=== PATIENT | male | born 1945 | race Caucasian/White ===

== ENCOUNTER 2016-08-26 07:38 | Day surgery (SDC) | payer OTHER ==
[~2016-08-26] VITALS: Ht 170.2 cm; Wt 68.3 kg
[~2016-08-26 07:38] MED LIST: DEXA4TAB PO; DICY20TA59 PO; LENA2.5C PO; METF500T4 PO; PANT40TA3 PO; [UNRECOGNIZED DRUG - CODE] SUBCUTANE
[2016-08-26] MEDS ORDERED: PROPOFOL 20 ML ONE ×3 (08:01→08:24)
[2016-08-26 08:14] VITALS: Ht 170.2 cm; Wt 68.3 kg
[2016-08-26] MEDS ORDERED: EPHEDrine SULFATE 50 MG/5 ML SYG ONE (08:23)
[2016-08-26] MEDS ORDERED: MIDAZOLAM 1 MG/ML 2 ML INJ ONE (08:24)
[2016-08-26] MEDS ORDERED: FENTAnyl 50 MCG/ML VIAL ONE (08:24)
[2016-08-26 08:33] VITALS: BP 113/70; PULSE 76; RESP 14
[2016-08-26] MEDS ORDERED: CHOL400D8 PO (09:11)
[2016-08-26] MEDS ORDERED: POLY17PO6 PO (09:11)
[2016-08-26] MEDS ORDERED: VIT1TABL85 PO (09:11)
[2016-08-26] MEDS ORDERED: ACYC200O5 PO (09:11)
[2016-08-26 09:33] VITALS: BP 102/77; PULSE 62; RESP 16
--- NOTE | 2016-08-26 13:26 | GILP ---
DATE OF PROCEDURE: 08/26/2016 INDICATION: A 71-year-old male undergoing this procedure for abdominal pain. He has multiple myelo ma. Patient also undergo ongoing this procedure for colon cancer screening. The risks of the proce dure, related and unrelated complications, anesthetic risks, alternatives discussed and informed con sent was obtained. DESCRIPTION OF PROCEDURE: The patient was brought to the GI lab, sedated by Dr. Price. After opti mal sedation, scope was passed with much ease into esophagus. The Z line was at 35 cm. He had eros ashish esophagitis, LA class 1. Stomach mucosa revealed acute and chronic gastritis. Duodenal bulb floyd d a small nodule biopsied. The second part was within normal limits. Ampulla was normal. Multiple biopsies obtained from the stomach, total 4, to rule out H. pylori infection. Retroversion done, no growth was seen. Scope was straightened out and removed with good patient tolerance. IMPRESSION: Normal esophagus except for: 1. Erosive esophagitis, LA class 1. 2. Z line regular at 35 cm. 3. Acute and chronic gastritis. 4. Duodenal nodule biopsied. 5. Normal second part of the duodenum. PLAN: Review histopathology. COLONOSCOPY: The patient was turned around, scope was passed with much ease into rectum, advanced t hrough sigmoid, descending, transverse colon all the way into cecum. Appendiceal orifice is identif ied. The cecum was 20% to 25% ____IC valve was normal. Rest of the colon appeared normal. Patient had a solid stool at different angulations, precluding the visibility by 5 to 10%. The rest of th e colon appeared normal. IMPRESSION: 1. Poor prep. 2. Negative all the way into the cecum. 3. Small lesion can be easily missed. This finding still cannot explain the abdominal pain of this magnitude. PLAN: If the pain is persistent, then we should get an MRCP to make sure that the patient does not have a bile duct stone. Dictated By: GERHARD HARRELL/YAZMIN Conf#: [id number] DID#: [id number] CC: GERHARD CHRIS MD;*EndCC*
== END 2016-08-26 09:55 | disposition home or self-care (01) ==
LOC: GIL 07:38
PROVIDERS: ATTEND Internal Medicine Gastroenterology
DX: K29.30 Chronic superficial gastritis without bleeding (principal); K20.8 Other esophagitis; E11.9 Type 2 diabetes mellitus without complications
CPT/HCPCS: 43239; 88305; 88312; J2250; J3010; Z7610